=== PATIENT | male | born 1975 | race Two or more races ===

== ENCOUNTER 2017-10-31 20:06 | Inpatient (IN) | payer MEDICAID, OTHER ==
[~2017-10-31] VITALS: Ht 162.6 cm; Wt 74.8 kg
--- NOTE | 2017-10-31 20:06 | NUR ---
PT BIB RA WITH A C/O LUQ INTRACTABLE ABD PAIN WITH N/V. PT IS GUARDING LUQ. PT IS ON THE MONITOR AND CONTINUOUS PULSE OX. PT STATED THAT IT IS DIFFICULT TO GET AN IV ON HIM. DR. PAYAN IS AT THE BEDSIDE EVALUATING THE PT. PT STATED THAT HE IS IN DETOX FOR 4 DAYS AND ONLY REC'D LIBRIUM. EMS STATED PT REC'D ZOFRAN IM PRIOR TO LEAVING THE DETOX CENTER. PT DENIES REC'ING ZOFRAN.
[2017-10-31] MEDS ORDERED: ONDANSETRON HCL/PF 4 MG/2 ML VIAL ONE ×2 (20:24→21:28)
[2017-10-31] MEDS ORDERED: PANTOPRAZOLE 40 MG VIAL ONE (20:24)
[2017-10-31] MEDS ORDERED: MORPHINE SULFATE INJ 4 MG/ML DISP.SYRIN ONE ×2 (20:24→21:28)
[2017-10-31] MEDS ORDERED: FAMOTIDINE/PF INJ 20 MG/2 ML VIAL IV ONE ×2 (20:24→20:30)
[2017-10-31] MEDS ORDERED: LORAZEPAM INJ 2 MG/ML VIAL ONE (20:25)
[2017-10-31] MEDS ORDERED: LORAZEPAM INJ 2 MG/ML VIAL IV ONE (20:30)
[2017-10-31] MEDS ORDERED: IV NS 0.9% 1,000 ML BAG IV ONE (20:30)
[2017-10-31] MEDS ORDERED: ONDANSETRON HCL/PF 4 MG/2 ML VIAL IVP ONE (20:30)
[2017-10-31] MEDS ORDERED: PANTOPRAZOLE 40 MG VIAL IV ONE (20:30)
[2017-10-31] MEDS ORDERED: MORPHINE SULFATE INJ 2 MG/ML DISP.SYRIN IV ONE ×2 (20:30→21:00)
--- NOTE | 2017-10-31 20:47 | NUR ---
Right upper arm 20g iv started. Medications given per MD order
[2017-10-31 20:55] LABS: BASOPHILS # (AUTO) 0.1 /CMM (0.0-0.2); LYMPHOCYTES # (AUTO) 1.8 /CMM (0.8-4.8); MEAN CORPUSCULAR HEMOGLOBIN 26 PG (26.0-33.0); MONOCYTES # (AUTO) 0.8 /CMM (0.1-1.30)
[2017-10-31 20:58] LABS: BASOPHILS % (AUTO) 1.2 % (0.0-2.0); HEMATOCRIT 41 % (39-51); HEMOGLOBIN 13.5 g/dL (13.5-17.5); LYMPHOCYTES % (AUTO) 19.2 % (20.0-44.0); MEAN CORPUSCULAR HGB CONC 33 g/dl (31.0-36.0); MEAN CORPUSCULAR VOLUME 78 fL (80-96); NEUTROPHILS # (AUTO) 6.5 /CMM (1.8-8.9); NEUTROPHILS % (AUTO) 68.6 % (43.0-81.0); PLATELET COUNT (AUTO) 262 /CMM (150-450); RDW COEFFICIENT OF VARIATION 20.6 (11.5-15.0); WHITE BLOOD COUNT (AUTO) 9.4 K/uL (4.3-11.0)
[2017-10-31] MEDS ORDERED: IV D5/0.45 NACL 1,000 ML IV ONE (21:00)
[2017-10-31 21:07] LABS: INR 0.88 (0.85-1.15)
[2017-10-31 21:07] LABS: APPEARANCE,URINE Clear (CLEAR); BILIRUBIN,URINE Negative (NEGATIVE); BLOOD, URINE Negative Ery/uL (NEGATIVE); COLOR,URINE Yellow (YELLOW); KETONES,URINE Negative (NEGATIVE); LEUKOCYTE ESTERASE ,URINE Negative (NEGATIVE); NITRITE, URINE Negative (NEGATIVE); PH,URINE 8.5 (5.0-8.0); PROTEIN,URINE Negative (NEGATIVE); UGLUCOSE Negative (NEGATIVE); UROBILINOGEN,URINE 0.2 EU/dL (0.2)
[2017-10-31 21:12] LABS: ALANINE AMINOTRANSFERASE 34 U/L (12-78); ALBUMIN 4.2 g/dL (3.4-5.0); ALKALINE PHOSPHATASE 97 U/L (46-116); ASPARTATE AMINOTRANSFERASE 29 U/L (15-37); BILIRUBIN,DIRECT 0.1 mg/dL (0.0-0.2); BILIRUBIN,TOTAL 0.3 mg/dL (0.2-1.0); CALCIUM, SERUM 10.4 mg/dL (8.5-10.1); CARBON DIOXIDE 30 mmol/L (21-32); CHLORIDE 98 mmol/L (98-107); CREATININE 0.9 mg/dL (0.6-1.3); GLUCOSE 99 mg/dL (74-106); LIPASE 355 U/L (73-393); POTASSIUM 3.6 mmol/L (3.5-5.1); SODIUM SERUM 133 mmol/L (136-145); TOTAL PROTEIN, SERUM 8.9 g/dL (6.4-8.2); UREA NITROGEN, BLOOD 11 mg/dL (7-18)
[2017-10-31 21:14] LABS: TROPONIN I < 0.017 ng/mL (0.00-0.056)
[2017-10-31] MEDS ORDERED: ONDANSETRON HCL/PF - ER 4 MG/2 ML VIAL IV ONE (21:30)
--- NOTE | 2017-10-31 21:37 | NUR ---
CALLED [facility] FOR PANEL CALL AND DR ROB WAS PAGED. CALLED NURSING [employer] AND REQUESTED A MED SURG BED FOR THIS PT.
--- NOTE | 2017-10-31 21:37 | NUR ---
4mg morphine iv and 4mg zofran given via sarmad 20g iv for sharp left upper abdominal pain and multiple episodes of emesis
--- NOTE | 2017-10-31 22:05 | NUR ---
PT IS IN CT.
[2017-10-31] MEDS ORDERED: IV NS 0.9% 250 ML IV ONE (22:07)
[2017-10-31] MEDS ORDERED: IOHEXOL-300 100 ML VIAL IV ONE (22:07)
[2017-10-31] MEDS ORDERED: CT SWABBABLE VALVE TRANS SET 1 EA INFUS.SET MC ONE (22:07)
[2017-10-31] MEDS ORDERED: HYDROMORPHONE INJ 2 MG/ML DISP.SYRIN ONE (22:12)
--- NOTE | 2017-10-31 22:26 | NUR ---
PT RETURNED FROM CT.
[2017-10-31] MEDS ORDERED: HYDROMORPHONE 1 MG/1 ML DISP.SYRIN IV ONE (22:30)
[2017-11-01] MEDS ORDERED: LORAZEPAM INJ 2 MG/ML VIAL IV ONE
[2017-11-01] MEDS ORDERED: LORAZEPAM INJ 2 MG/ML VIAL ONE (00:01)
[2017-11-01] MEDS ORDERED: DICYCLOMINE HCL 10 MG CAPSULE PO STA (00:45)
[2017-11-01] MEDS ORDERED: LIDOCAINE VISCOUS 2% UD 15 ML UDC MM STA (00:45)
[2017-11-01] MEDS ORDERED: MAG HYDROX/AL HYDROX/SIMETH 30 ML UDC ONE (00:46)
[2017-11-01] MEDS ORDERED: LIDOCAINE VISCOUS 2% UD 15 ML UDC ONE (00:46)
--- NOTE | 2017-11-01 00:46 | NUR ---
PT IS C/O ABD PAIN NEW MEDS ORDERED.
[2017-11-01] MEDS ORDERED: FAMOTIDINE/PF INJ 20 MG/2 ML VIAL IV ONE ×2 (00:49→01:00)
[2017-11-01] MEDS ORDERED: DICYCLOMINE HCL 10 MG CAPSULE PO ONE (00:49)
[2017-11-01 01:00] VITALS: BP 142/93
[2017-11-01] MEDS ORDERED: MAG HYDROX/AL HYDROX/SIMETH 30 ML UDC PO ONE (01:00)
[2017-11-01 01:21] VITALS: BP 147/93
--- NOTE | 2017-11-01 01:21 | NUR ---
RN MS ADMITTING NOTES PATIENT WAS RECEIVED AT 0100 FROM ER, AWAKE, ALERT AND ORIENTED X4, RESPIRATIONS EVEN AND UNLABORED. WITH EQUAL RISE AND FALL OF CHEST. IV SITE TO RIGHT AC #20 GAUGE INTACT AND PATENT. NO REDNESS , NO INFILTRATION PRESENT TO SITE. ORIENTED TO STAFF, AND CALL LIGHT, CALL LIGHT KEPT WITHIN REACH, SAFETY PRECAUTIONS RENDERED, LOW BED, BED LOCKED, CALL ALARM ON FOR SAFETY PRECAUTIONS, PATIENT AWARE. BELONGINGS LIST DONE, BODY ASSESSMENT DONE, NOTED PATIENT SCRATCHING SELF , NOTED WITH SCATTERED SCABS/RASH TO BOTH UPPER EXTREMITIES AND POSTERIOR UPPER BACK AND ALSO NOTED WITH BILATERAL LOWER LEG RASH , NOTED PURPLE IN COLOR.MD AWARE OF ADMISSION AWAITING NEW ORDERS AT THIS TIME, WILL CONTINUE TO MONITOR. PATIENT APPEARS TO BE COMFORTABLE AT THIS TIME WILL CONTINUE TO MONITOR.
[2017-11-01] MEDS ORDERED: PHEN100C4 PO (01:31)
[2017-11-01] MEDS ORDERED: QUET300T2 PO (01:32)
[2017-11-01] MEDS ORDERED: QUET200T PO (01:36)
[2017-11-01] MEDS ORDERED: AMLO5TAB4 PO (01:37)
[2017-11-01] MEDS ORDERED: MAGNESIUM HYDROXIDE 30 ML UDC PO PRN (02:00)
[2017-11-01] MEDS ORDERED: ONDANSETRON HCL/PF 4 MG/2 ML VIAL IVP PRN (02:00)
[2017-11-01] MEDS ORDERED: ACETAMINOPHEN 325 MG TABLET PO PRN (02:00)
[2017-11-01] MEDS ORDERED: HYDROCODONE/APAP 5/325MG 1 EACH TABLET PO PRN (02:00)
[2017-11-01] MEDS ORDERED: ZOLPIDEM TARTRATE 5 MG TABLET PO PRN (02:00)
[2017-11-01] MEDS ORDERED: Z GUARD REMEDY 2 OZ OINT TP PRN (02:00)
[2017-11-01] MEDS ORDERED: MAG HYDROX/AL HYDROX/SIMETH 30 ML UDC PO PRN (02:00)
[2017-11-01] MEDS: MORPHINE SULFATE INJ 2 MG/ML DISP.SYRIN IV PRN ×5 (02:17→22:05)
--- NOTE | 2017-11-01 02:17 | NUR ---
RN MS NOTES PATIENT COMPLAIN OF PAIN TO LEFT ABDOMEN AREA, 02/02. PATIENT REQUESTING FOR PAIN MEDICATION, MORPHINE PRN OFFERED, PAT AGREED TO HAVE, PRN GIVEN ORDERED. WILL CONTINUE TO MONITOR FOR EFFECTIVENESS.
[2017-11-01] MEDS: IV D5/0.45 NACL 1,000 ML IV PRN ×2 (02:21→17:27)
--- NOTE | 2017-11-01 02:47 | NUR ---
RN MS NOTES PER PATIENT PAIN MEDICATION WAS EFFECTIVE, UPON ASSESSMENT NOTED TO APPEAR COMFORTABLE ,WATCHING TV, NO FACIAL GRIMACING PRESENT, NO MOANS. WILL CONTINUE TO MONITOR.
--- NOTE | 2017-11-01 03:00 | NUR ---
RN MS NOTES SPOKE TO REGARDING PATIENT HOME MEDICATIONS RECONCILED MEDS , PATIENT REQUESTING FOR DILANTIN, SEROQUEL AND NORVASC. PER MD OKAY TO CONTINUE WILL RECONCILE MEDS, AWAITING ORDERS AT THIS TIME. PER PATIENT HAS NOT TAKEN DILANTIN 10/31/17. WAS TRANSFERRED TO ER PRIOR TO SCHEDULED ADMINISTRATION.
--- NOTE | 2017-11-01 06:59 | NUR ---
RN MS CLOSING NOTES PATIENT IN BED AWAKE ALERT AND ORIENTED X 4 ABLE TO MAKE NEEDS KNOWN RESPIRATIONS EVEN AND UNLABORED WITH EQUAL RISE AND FALL OF CHEST. REMAINS COMFORTABLE AT THIS TIME, ALL NEEDS ATTENDED, CALL LIGHT AND URINAL KEPT AT BEDSIDE. IV SITE REMAINS INTACT, AND PATENT, WITH NO REDNESS , NO INFILTRATION PRESENT. WILL CONTINUE TO MONITOR AND ENDORSE TO NEXT SHIFT.
--- NOTE | 2017-11-01 07:10 | NUR ---
MSRN OPENING NOTES. PT RECEIVED A&0X3, AWAKE AND WATCHING T.V. PT TOLERATING ROOM AIR WITHOUT RESP DISTRESS. PT REPORTING SIGNIFICANT ABDOMINAL PAIN RELIEVED BY PRN- REPORTING PAIN MANAGEMENT ADEQUATE A THIS TIME. PT WITH IVC AT R AC INTACT AND OPERATIONAL. PT REPORTS DETOXING FROM ALCOHOL X3DAYS. PT REPORTS ANXIETY AND REQUESTING ATIVAN. PT BED IN LOWEST LOCKED POSITION WITH HANDRAILSX2 AND CALL GROVES WITHIN REACH. PT BRIEFED ON TODAY'S POC AND IS WITHOUT CONCERN OR COMPLAINT AT THIS TIME.
[2017-11-01 08:00] VITALS: BP 121/82
[2017-11-01] MEDS: PANTOPRAZOLE 40 MG VIAL IV SCH (09:55)
[2017-11-01] MEDS ORDERED: PHENYTOIN EXTENDED RELEASE 100 MG CAPSULE PO PRN (11:30)
[2017-11-01] MEDS ORDERED: CHLORDIAZEPOXIDE HCL 25 MG CAPSULE PO PRN (12:00)
--- NOTE | 2017-11-01 14:09 | NUR ---
MSRN NOTES. PT REPORTS INCREASED PAIN AT LEFT ABDO AFTER EATING TRAY. PRN ADMINISTERED.
[2017-11-01] MEDS: SUCRALFATE 1 G/10 ML UDC GT SCH ×3 (14:37→22:04)
--- NOTE | 2017-11-01 15:36 | NUR ---
Social service consult requested by TANI Mathew regarding concerns related to housing and his belongings. Pt. is a 42 year old male who was admitted to [facility] for pancreatitis. CHRISTINA met with pt. bedside. Pt. is alert and oriented x 4. Pt. states he came from [facility] in [place]. Pt. is worried about his belongings at the psych facility. CHRISTINA called [facility] from bedside. CHRISTINA spoke to MAINE Bliss in [address] and informed him the pt. continues to be hospitalized at [facility] and will come by when discharged to picker feeder his belongings. CHRISTINA gave the information to the pt. with MAINE Bliss as the contact lens lathe operator at [facility]. Pt. appeared less anxious after the phone call to [facility]. CHRISTINA updated pt's MAINE Bliss with the aforementioned information. Pt. will need transportation to [address] [place] [address] in [place] upon discharge. No other social service needs are required at this time. CHRISTINA is available, if needed.
[2017-11-01 16:00] VITALS: BP 124/94
--- NOTE | 2017-11-01 19:23 | NUR ---
ms/rn opening notes PATIENT IN BED, ALERT. ORIENTED X3, ABLE TO VERBALIZE NEEDS, RESPIRATIONS EVEN AND UNLABORED , SKIN WARM TO TOUCH, RECEIVED ENDORSEMENT FROM AM RN FOR DANIELITO. DISCUSSED PLAN OF CARE WITH PLAN WOODALL AFTER MIDNIGHT FOR EGD, CONSENT SIGNED, TO DO CHECK LIST, INFORMED AND MADE AWARE. ON PAIN MEDICATION MONITORING FOR RELIEF AND EFFECTIVENESS. CALL LIGHTS WITHIN REACH. BED IN LOCK POSITION WILL MONITOR.
--- NOTE | 2017-11-01 19:32 | NUR ---
MSRN CLOSING NOTES. PT ENDORSED TO NIGHT NURSE AT BEDSIDE FOR DANIELITO. ALL DAY NURSE DUTIES ATTENDED TO AND PT IS WITHOUT CONCERN OR COMPLAINT AT THIS TIME.
[2017-11-01 20:00] VITALS: BP_SYST 116; BP_SYST 125; BP_DIAS 68; BP_DIAS 79
[2017-11-01] MEDS ORDERED: QUETIAPINE FUMARATE 100 MG TABLET PO SCH (22:00)
[2017-11-01] MEDS ORDERED: PHENYTOIN EXTENDED RELEASE 100 MG CAPSULE PO SCH (22:00)
--- NOTE | 2017-11-02 06:26 | NUR ---
315-1 MS/RN NOTES PATINE IN BES, ABLE TO VERBALIZE NEEDS AT ALL TIMES, MONITORING FOR ANY S/S OF PAIN, COOPERTAIVE TO CARE, INFORMED ABOUT PROCEDUREMADE AWARE, CHECK LIST TO BE PREPARED. CALL LIGHTS WITHIN CHRISTOPHE, BED IN LOCK POSITION, WILL MONITOR.
--- NOTE | 2017-11-02 07:25 | NUR ---
RN NOTES PT IS LAYING DOWN IN BED, RESTING COMFORTABLY. PT ON RA, RESPIRATIONS ARE EVEN AND UNLABORED. IV ON RAC INTACT AND RUNNING D51/2 NS @ 75ML/HR. NO SIGNS OF DISTRESS NOTED. SAFETY MEASURES ARE IN PLACE, CALL LIGHT IS IN REACH. WILL CONTINUE TO MONITOR.
[2017-11-02] MEDS: SUCRALFATE 1 G/10 ML UDC GT SCH ×2 (07:30→11:42)
[2017-11-02 08:00] VITALS: BP 117/72
[2017-11-02] MEDS: PANTOPRAZOLE 40 MG VIAL IV SCH (08:07)
[2017-11-02] MEDS: MORPHINE SULFATE INJ 2 MG/ML DISP.SYRIN IV PRN (08:07)
[2017-11-02] MEDS ORDERED: QUETIAPINE FUMARATE 100 MG TABLET PO SCH (09:00)
[2017-11-02] MEDS ORDERED: AMLODIPINE BESYLATE 5 MG TABLET PO SCH (09:00)
[2017-11-02] MEDS: IV D5/0.45 NACL 1,000 ML IV PRN (09:20)
--- NOTE | 2017-11-02 10:12 | NUR ---
CHRISTINA met with pt. and gave him a shirt and a pair of sandals since he didn't have any. CHRISTINA also informed nursing pot lining supervisor Maggie that pt. will need taxi transportation to [id number] [facility] [id number]. Pt's RN Monse was updated. CHRISTINA also informed Monse to provide pt. with a meal prior to discharge.
[2017-11-02] MEDS ORDERED: ANESTHESIA TRAY IN PYXIS 1 EA TRAY MC ONE (12:34)
--- NOTE | 2017-11-02 14:10 | NUR ---
RN NOTES PT WAS DISCHARGED HOME IN STABLE CONDITION, TRANSPORTED BY [employer]. PT PROVIDED WITH DISCHARGE INSTRUCTIONS AND TOLD TO F/U WITH PCP WITHIN 1 WEEK OF DISCHARGE. BELONGINGS WERE RETURNED TO PT AND PAPERS WERE SIGNED. PT WAS TOLD TO STOP DRINKING AND TAKE OMEPRAZOLE OVER THE COUNTER NEEDED. PT VERBALIZED UNDERSTANDING AND STATED HE HAD AN APPOINTMENT WITH HIS PCP LATER TODAY. PT REFUSED TO HAVE WOUND DOCUMENTATION PICTURES TAKEN, STATES HE DOESN'T HAVE TIME BECAUSE HE NEEDS TO GET TO HIS APPOINTMENT. IV AND ID BAND WERE REMOVED. PT GIVEN [employer]AX[employer] VOUCHER FOR TRANSPORTATION.
== END 2017-11-02 14:23 | disposition home or self-care (01) | DRG 241 ==
LOC: ER 20:07 → TELE 11-01 00:35 → MED 11-01 01:53
PROVIDERS: ADMIT Internal Medicine; ATTEND Internal Medicine
DX: K27.3 Acute peptic ulcer, site unspecified, without hemorrhage or perforation (principal); E87.2 Acidosis; F20.9 Schizophrenia, unspecified; E87.1 Hypo-osmolality and hyponatremia; I10 Essential (primary) hypertension; E11.9 Type 2 diabetes mellitus without complications; G40.909 Epilepsy, unspecified, not intractable, without status epilepticus; F31.9 Bipolar disorder, unspecified; E86.1 Hypovolemia; K21.0 Gastro-esophageal reflux disease with esophagitis; F10.10 Alcohol abuse, uncomplicated; K29.70 Gastritis, unspecified, without bleeding
CPT/HCPCS: 36415; 71045-TC; 80048-TC; 80076-TC; 81000-TC; 82962-TC; 83605-TC; 83690-TC; 84484-TC; 85025-TC; 85730-TC; 87081-TC; 92521; A4606; C9113; G0480; J1170; J2060; J2270; J2405; J3490; J7030; J7050; Q9967; Z7610

== ENCOUNTER 2018-02-07 14:25 | Emergency (ER) | payer MEDICAID ==
[~2018-02-07] VITALS: Ht 177.8 cm; Wt 152.0 kg
[~2018-02-07 14:25] MED LIST: AMLO5TAB4 PO; PHEN100C4 PO; QUET200T PO; QUET300T2 PO
[2018-02-07] MEDS ORDERED: ACETAMINOPHEN ES 500 MG TABLET PO ONE (15:30)
[2018-02-07] MEDS ORDERED: ACETAMINOPHEN ES 500 MG TABLET ONE (15:58)
--- NOTE | 2018-02-07 16:20 | NUR ---
CHRISTINA received a call from ED informing SW that pt. would like to see the SW. CHRISTINA met with pt. bedside. Pt. was sitting at the edge of the bed in his boxers and a T-shirt. Pt. is alert and oriented x 4. Pt. was discharged today from [facility] and called 911 and was brought to [facility]. Pt. came to [facility] complaining of chest pain. Upon further assessment, pt. requested for a wheelchair insisting he cannot walk. It appears that pt. came to [facility] ED so that he could get a wheelchair. When asked by MAINE Simons if he can try to walk, pt. refused stating " I can't walk." CHRISTINA offered pt. a walker to which pt. agreed. Pt. is homeless. Pt. receives approximately $800/ month in SSI. CHRISTINA offered pt. homeless senior care /placement, however pt. declined. CHRISTINA informed pt. the nurse will get him a walker prior to discharge. Dr. Enamorado was updated with the aforementioned information. No other social service needs are requested at this time.
--- NOTE | 2018-02-07 16:27 | NUR ---
Pt ambulatory with steady gait
--- NOTE | 2018-02-07 16:29 | NUR ---
PT. VERBALIZED UNDERSTANDING OF AFTERCARE INSTRUCTIONS.Patient discharged to home in stable condition. Written and verbal after care instructions given. Patient verbalizes understanding of instruction.
[2018-02-07 16:30] VITALS: BP 120/69
== END 2018-02-07 16:31 | disposition home or self-care (01) ==
LOC: ER 14:30
DX: M54.5 Low back pain (principal); G89.29 Other chronic pain; R51 Headache; I10 Essential (primary) hypertension; E11.9 Type 2 diabetes mellitus without complications; F10.10 Alcohol abuse, uncomplicated; Y90.9 Presence of alcohol in blood, level not specified
CPT/HCPCS: 72110; 99284; A4606; Z7610

== ENCOUNTER 2019-06-24 14:59 | Emergency (ER) | payer MEDICAID ==
[~2019-06-24] VITALS: Ht 177.8 cm; Wt 132.9 kg
--- NOTE | 2019-06-24 14:59 | NUR ---
DILEEP 39 FRM OUTSIDE [facility] C/O BACK PAIN, -[employer] "WANTS ASSISTED AND FOOD" , -SI/HI, BS 126, pt awake, alert,- sob, nad noted, pending md williamson
--- NOTE | 2019-06-24 15:17 | NUR ---
SEEN BY DR STOKES
--- NOTE | 2019-06-24 15:25 | NUR ---
PT REFUSED EKG. MADE AWARE
--- NOTE | 2019-06-24 15:42 | NUR ---
pt urinated all over floor, refused all treatmets, ghanshyam buckner aware, per doc, pt is good for discharge. pt did not want to wait for papers. walked with steady gait. appears clincally sober.
[2019-06-24 15:46] VITALS: BP 132/80
== END 2019-06-24 15:46 | disposition home or self-care (01) ==
LOC: ER 15:09
DX: R42 Dizziness and giddiness (principal); M54.5 Low back pain; R51 Headache; I10 Essential (primary) hypertension; E11.9 Type 2 diabetes mellitus without complications; Z79.899 Other long term (current) drug therapy